=== PATIENT | male | born 1970 ===

== ENCOUNTER → 2016-11-17 | Outpatient (CLI) | payer BC ==
--- NOTE | 2016-11-17 10:18 | DIAGNOSTIC IMAGING REPORT ---
LEFT KNEE 4 OR MORE CLINICAL HISTORY: LEFT KNEE PAIN pain COMPARISON: None. DISCUSSION: The bones and joint spaces appear intact. There is no evidence of fracture, dislocation or bony disease. There is no evidence for soft tissue swelling. IMPRESSION: Negative study. Electronically signed by: Chad Lang M.D. 11/17/2016 10:16 AM Dictated Date/Time: 11/17/2016 10:16 AM
== END | disposition home or self-care (01) ==
LOC: C.RDSM 13:23
PROVIDERS: ATTEND Family Medicine
DX: M25.562 Pain in left knee (principal)